=== PATIENT | male | born 1955 | race Hispanic/Latino ===

== ENCOUNTER 2023-12-20 07:17 | Emergency (ER) | payer OTHER, SELFPAY ==
[2023-12-20] MEDS ORDERED: Calcium Chloride 10% INJ SYR IV ONE (07:18)
[2023-12-20] MEDS ORDERED: EPINEPHrine 1 MG/10 ML SYR IV ONE (07:18)
[2023-12-20] MEDS ORDERED: NA CHLORIDE 0.9% 1,000 ML IV ONE (07:18)
--- NOTE | 2023-12-20 07:32 | EDPHYS ---
Physician Documentation [facility] Name: Kong Mike Age: 68 yrs Sex: Male : 1955 Arrival Date: 12/20/2023 Time: 07:17 Bed 3 Private MD: ED Physician Cristian Padilla HPI: 12/19 07:31 This 68 yrs old Male presents to ER via Unassigned with complaints of Cardiac Arrest, ec2 CPR, Respiratory Arrest. 07:33 Patient arrives today with active cardiac arrest with ongoing compressions, history ec2 gathered by EMS, patient with significant respiratory distress on arrival was sudden respiratory collapse, patient with a bout of V. tach, given amiodarone, epinephrine x 3, transported. Medical history is unknown. 07:34 Patient was intubated by EMS.. ec2 Historical: - Allergies: 07:40 Unable to obtain; ss - Home Meds: 07:40 Unable to obtain [Active]; ss - PMHx: 07:40 Diabetes mellitus; ss 08:41 Hypertensive disorder; high cholesterol; ss - PSHx: 07:40 Unable to Obtain; ss - Social history:: Smoking status: unknown. ROS: 07:33 Constitutional: as per hpi ec2 Exam: 07:33 Constitutional: GEN: Unresponsive Head: atraumatic Eyes: Pupils are fixed Ears: ec2 External ears are normal. CV: Pulseless LUNGS: Breathing synchronously with the ET tube ABD: non-distended Vital Signs: 07:14 Resp 22 A; Pulse Ox 88% on ETT ambu; ss 07:25 Temp 97.8(R); ss [place] Coma Score: 07:16 Eye Response: none(1). Motor Response: none(1). Verbal Response: none(1). Total: 3. ss MDM: 07:31 Medical Screening Exam initiated ec2 07:34 Data reviewed: nurses notes. ED course: Patient arrives today in respiratory distress ec2 and Emergency Department in cardiac arrest with ongoing compressions. Examination remarkable for pulse individual. I guided ACLS with continued compressions as well as additional 2 doses of epinephrine, dose of calcium, 2 times bicarb and patient remained asystole throughout the time in the emergency department. I called time of at 727. Patient with fixed and blown pupils, no cardiac activity on ultrasonography, no pulse on ultrasonography.. Administered Medications: 07:19 Drug: EPINEPHrine 0.1mg/mL 1:10,000 1 mg IVP once Route: IVP; Site: right forearm; 07:22 Follow up: Response: No adverse reaction; No change in condition ss 07:20 Drug: Sodium Bicarbonate 1 amp IVP once; (50 mL); equals 50 mEq Route: IVP; Site: right ss forearm; 07:30 Follow up: Response: No adverse reaction; No change in condition 07:22 Drug: Calcium Chloride IVP 1 grams IVP once Route: IVP; Site: right forearm; 07:30 Follow up: Response: No adverse reaction; No change in condition 07:23 Drug: Atropine 1 mg IVP once {Note: administered by PAT Parekh.} Route: IVP; Site: ss right forearm; 07:30 Follow up: Response: No adverse reaction; No change in condition 07:23 Drug: EPINEPHrine 0.1mg/mL 1:10,000 1 mg IVP once Route: IVP; Site: right forearm; 07:30 Follow up: Response: No adverse reaction 07:24 Drug: Sodium Bicarbonate 1 amp IVP once; (50 mL); equals 50 mEq {Note: administered by perry Parekh RN.} Route: IVP; Site: right forearm; 07:30 Follow up: Response: No adverse reaction; No change in condition 07:24 Drug: ns 0.9% 1000 ml IV at 1 bolus Per protocol; to be given as a bolus over 60 ss minutes Route: IV; Rate: 1 bolus; Site: right forearm; 07:27 Follow up: IV Status: IV converted to saline lock ss Disposition Summary: 12/20/23 07:31 Patient Notes: Location: [employer] ec2 Pronouncing Physician: Cristian Padilla ecIna Time of : 07:27 12/20/2023 ec2 Diagnosis - Acute respiratory failure ec2 - Cardiac arrest, cause unspecified ec2 Signatures: Lacey Amaro, RN PAT Cristian Padilla MD MD ec2 Corrections: (The following items were deleted from the chart) 07:41 07:40 PSHx: None; [facility]
--- NOTE | 2023-12-20 09:05 | ER ---
Nurse's Notes [facility] Name: Kong Mike Age: 68 yrs Sex: Male : 1955 Arrival Date: 12/20/2023 Time: 07:17 Bed 3 Private MD: Diagnosis: Acute respiratory failure;Cardiac arrest, cause unspecified Presentation: 12/19 07:14 Chief complaint: EMS states: SOB x 2-3 days. Upon EMS arrival, pt was found to be ss sitting on porch, tripod position, respiratory distress and diaphoretic. Upon loading patient into truck for transportation to ED, pt suddenly became unresponsive with no pulse. CPR started immediately \[id number] by EMS personnel. Care prior to arrival: Assisted ventilation, Oral intubation, 7.5 ET tube, 23 \T\ teeth Medication(s) given: Epi administered VIA IO x 3. Last dose administered at 0714 while unloading in ambulance bay. Amiodarone, 300 mg also administered en route. EMS reports that they attempted to defibrillate x2 en route after noting rhythm to be V tach, no improvement/ no change in cardiac rhythm. Compressions began at 06:46. 07:14 Method Of Arrival: EMS: [facility] 07:14 Acuity: KAVON 1 ss 07:14 Initial Sepsis Screen: Does the patient have a suspected source of infection? No. ss Patient's initial sepsis screen is negative. Onset of symptoms was December 20, 2023. Historical: - Allergies: 07:40 Unable to obtain; ss - Home Meds: 07:40 Unable to obtain [Active]; ss - PMHx: 07:40 Diabetes mellitus; ss 08:41 Hypertensive disorder; high cholesterol; ss - PSHx: 07:40 Unable to Obtain; ss - Social history:: Smoking status: unknown. Assessment: 07:14 CPR assessment: unresponsive, intubated, Ambu ventilation, pale. Neuro: Level of ss Consciousness is unresponsive, Oriented to none. EENT:. Respiratory: Airway via oral intubation Respiratory pattern is symmetrical. Derm: Skin is pale, Skin temperature is warm. 07:16 Reassessment: Pulse check, no pulse. ASYSTOLE. CPR resumed. ss 07:18 Reassessment: Pulse check, no pulse. Asystole. CPR resumed. ss 07:20 Reassessment: Pulse check, no pulse. ASYSTOLE. CPR resumed. ss 07:22 Reassessment: Pulse check, NO pulse. ASYSTOLE. CPR resumed. ss 07:25 Reassessment: pulse check. NO pulse. PEA. CPR resumed. ss 07:27 Reassessment: Pulse check, no pulse. ASYSTOLE. Time of called by Dr. Padilla. ss 08:15 Reassessment: Anime Designer at bedside. 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 Vital Signs: 07:14 Resp 22 A; Pulse Ox 88% on ETT ambu; ss 07:25 Temp 97.8(R); Vitals: 07:27 Cardiac Rhythm Assessment [place]. [place] Coma Score: 07:16 Eye Response: none(1). Motor Response: none(1). Verbal Response: none(1). Total: 3. ED Course: 07:16 Inserted saline lock: 20 gauge in right forearm, using aseptic technique. ,using ss aseptic technique. Insertion by PAT Bowden Flushed with 10 mL NS. 07:19 Inserted saline lock: 22 gauge in left hand, using aseptic technique. ,using aseptic ss technique. Insertion by PAT Floyd Flushed with 10 mL NS. 07:24 Patient arrived in ED. eb 07:31 Cristian Padilla MD is Attending Physician. ec2 07:31 Cristian Padilla MD is Pronouncing Provider. ec2 07:31 [place] [facility] dispatch called to page the sample color maker fabrication supervisor. eb 07:37 Triage completed. ss 07:55 No provider procedures requiring assistance completed. ss 09:[address] during transfer to home. Administered Medications: 07:19 Drug: EPINEPHrine 0.1mg/mL 1:10,000 1 mg IVP once Route: IVP; Site: right forearm; 07:22 Follow up: Response: No adverse reaction; No change in condition 07:20 Drug: Sodium Bicarbonate 1 amp IVP once; (50 mL); equals 50 mEq Route: IVP; Site: right ss forearm; 07:30 Follow up: Response: No adverse reaction; No change in condition ss 07:22 Drug: Calcium Chloride IVP 1 grams IVP once Route: IVP; Site: right forearm; 07:30 Follow up: Response: No adverse reaction; No change in condition 07:23 Drug: Atropine 1 mg IVP once {Note: administered by RN. Izabella} Route: IVP; Site: right forearm; 07:30 Follow up: Response: No adverse reaction; No change in condition 07:23 Drug: EPINEPHrine 0.1mg/mL 1:10,000 1 mg IVP once Route: IVP; Site: right forearm; 07:30 Follow up: Response: No adverse reaction 07:24 Drug: Sodium Bicarbonate 1 amp IVP once; (50 mL); equals 50 mEq {Note: administered by perry Parekh RN.} Route: IVP; Site: right forearm; 07:30 Follow up: Response: No adverse reaction; No change in condition 07:24 Drug: ns 0.9% 1000 ml IV at 1 bolus Per protocol; to be given as a bolus over 60 ss minutes Route: IV; Rate: 1 bolus; Site: right forearm; 07:27 Follow up: IV Status: IV converted to saline lock Outcome: 09:02 Patient : Time of 07:27 Pronounced by Cristian Padilla MD Body to home, 09:02 Condition: 09:04 Patient left the ED. Signatures: Lacey Amaro RN RN Dianne Salmon Edwin, MD MD ec2 Corrections: (The following items were deleted from the chart) 07:41 07:40 PSHx: None; [facility] 19:04 07:27 Reassessment: Pulse check, no pulse. ASYSTOLE. Timd of called by Dr. perry Padilla.
[2023-12-20 09:34] VITALS: TEMP 97.8
== END 2023-12-20 09:04 ==
LOC: ER 07:17 → EDBD 07:17 → ER 09:04
DX: I46.9 Cardiac arrest, cause unspecified (principal); E11.9 Type 2 diabetes mellitus without complications; I10 Essential (primary) hypertension; E78.00 Pure hypercholesterolemia, unspecified
CPT/HCPCS: 96375; 96374; 92950; 99285; J0171; J7030